=== PATIENT | female | born 1980 | race Two or more races ===

== ENCOUNTER 2023-04-07 13:33 | Emergency (ER) | payer MEDICAID ==
[~2023-04-07] VITALS: Ht 160 cm; Wt 79.1 kg
[2023-04-07 14:28] VITALS: BP 123/76; PULSE 83; RESP 19; O2SAT 98
== END 2023-04-07 20:23 | disposition left against medical advice (07) ==
LOC: ER 13:33
DX: R51.9 Headache, unspecified (principal); Z53.21 Procedure and treatment not carried out due to patient leaving prior to being seen by health care provider